=== PATIENT | female | born 1995 | race Two or more races ===

== ENCOUNTER 2019-03-22 18:49 | Emergency (ER) | payer OTHER ==
[2019-03-22 18:56] VITALS: BMI 19.1
--- NOTE | 2019-03-22 19:17 | PDOC ---
History of Present Illness - General Chief Complaint: Vaginal Bleeding Stated Complaint: 5 W PREG/VAG BLEEDING Time Seen by Provider: 03/22/19 19:12 History Source: Patient - History of Present Illness Initial Comments: 03/22/19 19:23 The patient is a 23 year old female at a self reported 5 weeks gestation who presents with acute onset of vaginal spotting today. No visible clots, no abdominal cramping. Evaluated two weeks previous at [facility] office with no concerning findings. Next [facility] appointment scheduled for 04/02/19. The patient denies chest pain, shortness of breath abdominal cramping, nausea/ vomiting, fevers/chills, numbness/tingling. NKDA As per EMR, patient O-negative and Rhogam administered after her 2013 delivery. Past History - Past Medical History Allergies/Adverse Reactions: Allergies Allergy/AdvReac Type Severity Reaction Status Date / Time No Known Allergies Allergy Verified 03/22/19 18:52 Home Medications: Ambulatory Orders Cephalexin [Keflex] 500 mg PO BID #14 capsule 03/22/19 Asthma: No Cancer: No Cardiac Disorders: No COPD: No Diabetes: No HTN: No Seizures: No Thyroid Disease: No - Reproductive History Ectopic : No - Immunization History Immunization Up to Date: Yes - Suicide/Smoking/Psychosocial Hx Smoking Status: No Smoking History: Never smoked Have you smoked in the past 12 months: No Number of Cigarettes Smoked Daily: 0 Hx Alcohol Use: No Drug/Substance Use Hx: No Substance Use Type: None Hx Substance Use Treatment: No *Physical Exam - Vital Signs Last Vital Signs Temp Pulse Resp BP Pulse Ox 98.7 F 111 H 20 114/72 100 03/22/19 18:52 03/22/19 18:52 03/22/19 18:52 03/22/19 18:52 03/22/19 18:52 - Physical Exam General Appearance: Yes: Nourished, Appropriately Dressed HEENT: positive: Normal Voice, Hearing Grossly Normal Neck: positive: Trachea midline, Supple Respiratory/Chest: positive: Lungs Clear, Normal Breath Sounds Cardiovascular: positive: S1, S2. negative: Edema, Murmur Female Pelvic Exam: positive: normal external exam, cervical os closed, vaginal bleeding (pinkish blood in vaginal vault) Musculoskeletal: negative: CVA Tenderness (R), CVA Tenderness (L) ED Treatment Course - LABORATORY CBC & Chemistry Diagram: 03/22/19 19:48 03/22/19 19:48 Medical Decision Making - Medical Decision Making 03/22/19 19:25 23 year old female at a self reported 5 weeks gestation with vaginal spotting. Tachycardic (HR 111), other VS unremarkable. Will evaluate for Threatened vs. SAB with TVUS, beside pelvic exam, CBC to evaluate for anemia, UA for Asx bacteruria. 03/22/19 21:31 Beta HCG 3716 c/w 3-5 week gestation 03/22/19 21:40 Hb stable @ 12 UA pending 03/22/19 22:04 Tachycardia resolved, other VSS TVUS shows no gestational sac or pole. Patient counseled she will require repeat B-HCG within 48 hours and likely repeat TVUS. Blood placed informed of Rhogam order 03/22/19 22:10 03/22/19 22:48 Called lab - label on patient's UA crooked, and machine rejected sample. Will rerun 03/22/19 23:04 UA shows 2+ blood 2+ leukocyte esterase, (+) nitrite, 34 WBC, > 9000 bacteria. Will treat with Keflex for presumed UTI. Patient discharged home with return precautions, strong counseling on importance of follow up evaluation with [facility]- [facility] Security Sales Consultant and 7 day course of Cephaxelin. I discussed the physical exam findings, ancillary test results and final diagnoses with the patient. I answered all of the patient's questions. The patient was satisfied with the care received and felt comfortable with the discharge plan and treatment plan. The patient will return to the Emergency Department with any new, persistent or worsening symptoms. 03/22/19 23:09 *DC/Admit/Observation/Transfer Diagnosis at time of Disposition: Vaginal bleeding affecting early , UTI (urinary tract infection) - Discharge Dispostion Disposition: HOME Condition at time of disposition: Good Decision to Admit order: No - Prescriptions Prescriptions: Cephalexin [Keflex] 500 mg PO BID #14 capsule - Referrals - Patient Instructions Printed Discharge Instructions: DI for Vaginal Bleeding During Additional Instructions: Please make a follow-up appointment for evaluation with your [facility] Consultant in the next 48 hours. If you are unable to be evaluated by your mgmt specialist in the next 48 hours return immediately to the Emergency Department for repeat blood testing and ultrasound. We have sent an antibiotic prescription to your pharmacy for bacteria in your urine.. Please take the entire antibiotic course as directed. Return to the Emergency Department before 48 hours for any new/worsening/ concerning symptoms. - Post Discharge Activity
--- NOTE | 2019-03-22 19:41 | PDOC ---
Documentation entered by Feliciano Campos SCRIBE, acting as scribe for Teresita Marte MD. Teresita Marte MD: This documentation has been prepared by the Andres douglas Xhesika, SCRIBE, under my direction and personally reviewed by me in its entirety. I confirm that the documentation accurately reflects all work, treatment, procedures, and medical decision making performed by me. Attending Attestation - Resident Resident Name: BrittanyAnabella - ED Attending Attestation I have performed the following: I have examined & evaluated the patient, The case was reviewed & discussed with the resident, I agree w/resident's findings & plan, Exceptions are as noted - HPI HPI: 03/22/19 19:39 The patient is a 23 year old female, , 5 weeks , with no significant past medical history of who presents to our ED with onset vaginal bleeding. The patient was seen by her OPERATIONS ARCHITECT 2 weeks ago with no abnormal findings. Patient states her next appointment is on 04/02/19. The patient denies abdominal pain, chest pain, shortness of breath or dizziness. The patient denies fever, chills, nausea, diarrhea or constipation. The patient denies dysuria, frequency, or urgency. Allergy: NKDA Surgical History: None reported Social History: None reported - Physicial Exam PE: 03/22/19 19:24 GENERAL: The patient is in no acute distress. ENT: Ears normal, nares patent, oropharynx clear without exudates. Moist mucous membranes. NECK: Normal range of motion, supple LUNGS: Breath sounds equal, clear to auscultation bilaterally. No wheezes, and no crackles. HEART:Regular rate and rhythm, normal S1 and S2 without murmur, rub or gallop. ABDOMEN: Soft, nontender, normoactive bowel sounds. PELVIC: per resident examination EXTREMITIES: Normal range of motion NEUROLOGICAL: Cranial nerves II through XII grossly intact. Normal speech. No focal neurological deficits. SKIN: Warm, Dry, normal turgor, no rashes or lesions noted. - Medical Decision Making 03/22/19 19:39 23 yo F presenting to the ER with vaginal bleeding (approximately 5 weeks) Ectopic , threatened ab, sub chorionic hemorrhage Will do: Labs Type and Screen TV US Re assess 03/22/19 22:00 Laboratory Tests 03/22/19 03/22/19 19:48 19:48 WBC 5.0 Hgb 12.0 Hct 35.4 Plt Count 207 Sodium 138 Potassium 4.0 Chloride 107 Carbon Dioxide 24 BUN 15 Creatinine 1.0 Random Glucose 92 Beta HCG, Quant 3716.1 FINDINGS: Likely early intrauterine gestational sac with no pole or yolk sac visualized. Approximate age of 4 weeks, 5 days by mean sac diameter of 0.23 cm Correlation with serial beta hCG and follow-up ultrasound is suggested There are 2 small fluid collections in the fundal endometrium 1 anechoic simple fluid collection and 1 containing complex fluid. These are of uncertain etiology or clinical significance Normal right ovary containing a few small follicles 03/22/19 22:00 03/22/19 22:48 Laboratory Tests 03/22/19 19:48 Blood Type O NEGATIVE Rhogam given Awaiting UA
[2019-03-22 19:58] LABS: BASO % 1.1 % (0-2.0); EOS % 1.9 % (0-4.5); HEMATOCRIT 35.4 % (32.4-45.2); LYMPH % 39.5 % (8-40); MCH 31.7 pg (25.7-33.7); MCHC 33.9 g/dl (32.0-36.0); MEAN CELL VOLUME 93.4 fl (80-96); MEAN PLT VOLUME 8.5 fl (7.5-11.1); MONO % 12.1 % (3.8-10.2); NEUT % 45.4 % (42.8-82.8); PLATELET COUNT 207 K/MM3 (134-434); RBC 3.79 M/mm3 (3.60-5.2); RDW 12.4 % (11.6-15.6)
[2019-03-22 20:32] LABS: ALBUMIN 3.8 g/dl (3.4-5.0); BILIRUBIN,TOTAL 0.7 mg/dL (0.2-1); CALCIUM 8.6 mg/dL (8.5-10.1); TOT PROT 7.8 g/dl (6.4-8.2)
[2019-03-22] MEDS ORDERED: RHO(D) IMMUNE GLOBULIN 1,500 UNIT DISP.SYRIN IM ONE (21:45)
[2019-03-22 22:02] VITALS: BP 100/60; PULSE 95; TEMP 98.2
[2019-03-22 22:54] LABS: EPI CELLS 2.2 /HPF (0-5/HPF); PH,URINE 6.5 (5.0-8.0); URINE APPEARANCE CLOUDY; URINE BACTERIA >9000 /hpf (NEGATIVE); URINE BILIRUBIN NEGATIVE (NEGATIVE); URINE CASTS 13 /lpf (0-8); URINE COLOR YELLOW; URINE GLUCOSE (UA) NEGATIVE (NEGATIVE); URINE KETONE NEGATIVE (NEGATIVE); URINE LEUK ESTERASE 2+ (NEGATIVE); URINE NITRITE POSITIVE (NEGATIVE); URINE PROTEIN NEGATIVE (NEGATIVE); URINE RBC 9 /hpf (0-4); URINE UROBILINOGEN 0.2 mg/dL (0.2-1.0); URINE WBC 34 /hpf (0-5)
== END 2019-03-22 23:06 | disposition home or self-care (01) ==
LOC: JER 18:49
PROC: 3E033GC Introduction of Other Therapeutic Substance into Peripheral Vein, Percutaneous Approach (ICD-10-PCS; principal; 2019-03-22)
DX: O26.891 Other specified pregnancy related conditions, first trimester (principal); Z3A.01 Less than 8 weeks gestation of pregnancy; N39.0 Urinary tract infection, site not specified
CPT/HCPCS: 36415; 76817-TC; 80053; 81003; 84702; 85025; 86850; 86900; 86901; 86999; 99282-25; J1561

== ENCOUNTER 2022-01-02 18:36 | Emergency (ER) | payer OTHER ==
[2022-01-02 18:57] VITALS: BP 118/74; PULSE 110; TEMP 98.2; BMI 27.3
[2022-01-02] MEDS ORDERED: KETOROLAC TROMETHAMINE 30 MG/1 ML VIAL IM ONE (20:01)
[2022-01-02] MEDS ORDERED: KETOROLAC TROMETHAMINE 30 MG/1 ML VIAL ONE (20:13)
== END 2022-01-02 20:49 | disposition home or self-care (01) ==
LOC: JER 18:36
PROC: 3E0233Z Introduction of Anti-inflammatory into Muscle, Percutaneous Approach (ICD-10-PCS; principal; 2022-01-02)
DX: R07.1 Chest pain on breathing (principal)
CPT/HCPCS: 96372; 99283-25

== ENCOUNTER 2022-07-01 10:13 | Emergency (ER) | payer OTHER ==
[2022-07-01 10:32] VITALS: BP 102/67; PULSE 100; RESP 18; TEMP 98.3; BMI 22.7
[2022-07-01] MEDS ORDERED: KETOROLAC TROMETHAMINE 60 MG/2 ML VIAL IM ONE (11:09)
[2022-07-01] MEDS ORDERED: KETOROLAC TROMETHAMINE 30 MG/1 ML VIAL ONE (11:11)
== END 2022-07-01 12:07 | disposition home or self-care (01) ==
LOC: JER 10:13 → JERFT 10:13
PROC: 3E0233Z Introduction of Anti-inflammatory into Muscle, Percutaneous Approach (ICD-10-PCS; principal; 2022-07-01)
DX: M25.511 Pain in right shoulder (principal)
CPT/HCPCS: 73030-TC-RT-FY; 93005; 93010; 99284-25

== ENCOUNTER 2023-10-25 09:18 | Emergency (ER) | payer OTHER ==
[2023-10-25 09:25] VITALS: BMI 28.1
[2023-10-25] MEDS ORDERED: METOCLOPRAMIDE HCL INJECTION 10 MG/2 ML VIAL IVPB ONE (09:52)
[2023-10-25] MEDS ORDERED: SODIUM CHLORIDE 0.9% 500 ML INFUS.BAG IV ONE (09:52)
[2023-10-25] MEDS ORDERED: ACETAMINOPHEN 1000 MG/100 ML BAG IVPB ONE (09:53)
[2023-10-25] MEDS ORDERED: ACETAMINOPHEN INJECTION 100 ML IVPB ONE (10:11)
[2023-10-25] MEDS ORDERED: METOCLOPRAMIDE HCL INJECTION 10 MG/2 ML VIAL ONE (10:11)
[2023-10-25 10:22] LABS: BASO % 1.5 % (0-2.0); EOS % 1.8 % (0-4.5); HEMATOCRIT 34.2 % (32.4-45.2); HEMOGLOBIN 11.8 GM/dL (10.7-15.3); LYMPH % 38.5 % (8-40); MCH 31.4 pg (25.7-33.7); MCHC 34.6 g/dl (32.0-36.0); MEAN PLT VOLUME 8.2 fl (7.5-11.1); MONO % 12.6 % (3.8-10.2); NEUT % 45.6 % (42.8-82.8); PLATELET COUNT 229 10^3/uL (134-434); RBC 3.76 M/mm3 (3.60-5.2); RDW 12.2 % (11.6-15.6); WHITE BLOOD COUNT 4.5 K/mm3 (4.0-10.0)
[2023-10-25 10:40] LABS: CHLORIDE 103 mmol/L (98-107); POTASSIUM 4.2 mmol/L (3.5-5.1); SODIUM 136 mmol/L (136-145)
[2023-10-25 10:43] LABS: ALBUMIN 3.4 g/dl (3.4-5.0); ANION GAP 7 mmol/L (4-13); BLOOD UREA NITROGEN 12.9 mg/dL (7-18); CALCIUM 8.7 mg/dL (8.5-10.1); CO2 26 mmol/L (21-32); GLUCOSE,RANDOM 90 mg/dL (74-106)
[2023-10-25 10:46] LABS: CREATININE 0.8 mg/dL (0.55-1.3); SGOT/AST 19 U/L (15-37)
[2023-10-25 10:47] LABS: SGPT/ALT 46 U/L (13-61)
[2023-10-25 10:48] LABS: TOT PROT 7.7 g/dl (6.4-8.2)
[2023-10-25 10:49] LABS: ALK PHOS 64 U/L (45-117)
[2023-10-25] MEDS ORDERED: ACETAMINOPHEN 500 MG TABLET (FP) ONE (10:50)
[2023-10-25 10:51] LABS: EPI CELLS >36 /uL (0-25.1); HYALINE CASTS 1 /uL (0-3.1); PH,URINE 5.5 (5.0-8.0); URINE APPEARANCE TURBID; URINE BACTERIA >9,000 /uL (0-1359); URINE BILIRUBIN NEGATIVE (NEGATIVE); URINE COLOR DK YELLOW; URINE GLUCOSE (UA) NEGATIVE (NEGATIVE); URINE KETONE TRACE (NEGATIVE); URINE LEUK ESTERASE 3+ (NEGATIVE); URINE NITRITE POSITIVE (NEGATIVE); URINE PROTEIN 1+ (NEGATIVE); URINE RBC 112 /uL (0-23.9); URINE WBC 1031 /uL (0-25.8)
[2023-10-25] MEDS ORDERED: CEFTRIAXONE 1,000 MG in DEXTROSE 5%-WATER - 50 ML IVPB ONE (10:55)
[2023-10-25] MEDS ORDERED: CEFTRIAXONE 1 GM/50 ML BAG ONE (11:03)
[2023-10-25 15:59] VITALS: BP 111/62; PULSE 76; RESP 20; TEMP 98.2
== END 2023-10-25 15:25 | disposition home or self-care (01) ==
LOC: JER 09:18
PROC: 3E03329 Introduction of Other Anti-infective into Peripheral Vein, Percutaneous Approach (ICD-10-PCS; principal; 2023-10-25)
PROC: 3E033NZ Introduction of Analgesics, Hypnotics, Sedatives into Peripheral Vein, Percutaneous Approach (ICD-10-PCS; 2023-10-25)
PROC: 3E033GC Introduction of Other Therapeutic Substance into Peripheral Vein, Percutaneous Approach (ICD-10-PCS; 2023-10-25)
DX: O21.9 Vomiting of pregnancy, unspecified (principal); O26.891 Other specified pregnancy related conditions, first trimester; R10.30 Lower abdominal pain, unspecified; R51.9 Headache, unspecified; R11.0 Nausea; Z20.822 Contact with and (suspected) exposure to COVID-19; Z3A.09 9 weeks gestation of pregnancy
CPT/HCPCS: 0241U-QW; 36415; 76830-TC; 80053; 81003; 83735; 84702; 85025; 86850; 86900; 86901; 87086; 87186; 93005; 93010; 99285-25

== ENCOUNTER 2024-01-01 10:09 | Observation (INO) | payer OTHER ==
[2024-01-01 10:14] VITALS: BMI 26.6
[2024-01-01 11:04] LABS: BASO % 0.6 % (0-2.0); EOS % 1.7 % (0-4.5); HEMOGLOBIN 11.2 GM/dL (10.7-15.3); LYMPH % 23.5 % (8-40); MCHC 34.9 g/dl (32.0-36.0); MEAN CELL VOLUME 94.3 fl (80-96); MEAN PLT VOLUME 7.9 fl (7.5-11.1); MONO % 7.8 % (3.8-10.2); NEUT % 66.4 % (42.8-82.8); PLATELET COUNT 230 10^3/uL (134-434); RDW 12.8 % (11.6-15.6); WHITE BLOOD COUNT 6.3 K/mm3 (4.0-10.0)
[2024-01-01 11:10] LABS: EPI CELLS >36 /uL (0-25.1); HYALINE CASTS 20 /uL (0-3.1); PH,URINE 7.5 (5.0-8.0); URINE APPEARANCE TURBID; URINE BACTERIA >9,000 /uL (0-1359); URINE BILIRUBIN NEGATIVE (NEGATIVE); URINE COLOR YELLOW; URINE GLUCOSE (UA) NEGATIVE (NEGATIVE); URINE KETONE NEGATIVE (NEGATIVE); URINE LEUK ESTERASE 2+ (NEGATIVE); URINE NITRITE POSITIVE (NEGATIVE); URINE PROTEIN 4+ (NEGATIVE); URINE UROBILINOGEN 0.2 mg/dL (0.2-1.0); URINE WBC 6725 /uL (0-25.8)
[2024-01-01 11:33] LABS: POTASSIUM 4.6 mmol/L (3.5-5.1)
[2024-01-01 11:35] LABS: CALCIUM 9.1 mg/dL (8.5-10.1)
[2024-01-01 11:36] LABS: BLOOD UREA NITROGEN 9.2 mg/dL (7-18)
[2024-01-01 11:39] LABS: CREATININE 0.6 mg/dL (0.55-1.3)
[2024-01-01 11:40] LABS: BILIRUBIN,TOTAL 0.6 mg/dL (0.2-1); TOT PROT 7.4 g/dl (6.4-8.2)
[2024-01-01] MEDS ORDERED: CEFTRIAXONE 1 GM/50 ML BAG ONE (11:47)
[2024-01-01] MEDS: CEFTRIAXONE 1 GM in DEXTROSE 5%-WATER - 100 ML IVPB ONE (11:56)
[2024-01-01 13:55] LABS: URINE RBC 318.4 /uL (0-23.9)
[2024-01-01 13:57] LABS: YEAST NONE SEEN (NEGATIVE)
[2024-01-01 14:22] VITALS: PULSE 97; RESP 16
[2024-01-01] MEDS: SODIUM CHLORIDE 1,000 ML IV STA (15:32)
[2024-01-01] MEDS: SODIUM CHLORIDE 1,000 ML IV SCH (16:01)
[2024-01-01 18:27] VITALS: BP 103/53; TEMP 98.4
== END 2024-01-01 18:31 | disposition home or self-care (01) ==
LOC: JER 10:09 → INTOOBSV 13:34 → UNDOADMOB 13:34 → JERBED 13:34
PROVIDERS: ADMIT Internal Medicine; ATTEND Internal Medicine
PROC: 3E03329 Introduction of Other Anti-infective into Peripheral Vein, Percutaneous Approach (ICD-10-PCS; principal; 2024-01-01)
PROC: 3E0337Z Introduction of Electrolytic and Water Balance Substance into Peripheral Vein, Percutaneous Approach (ICD-10-PCS; 2024-01-01)
DX: O23.42 Unspecified infection of urinary tract in pregnancy, second trimester (principal); N39.0 Urinary tract infection, site not specified; O12.12 Gestational proteinuria, second trimester; Z3A.18 18 weeks gestation of pregnancy; R10.32 Left lower quadrant pain
CPT/HCPCS: 36415; 76775-TC; 76816-TC; 76856-TC; 80053; 81003; 82436; 82570; 83605; 83930; 84133; 84300; 85025; 86140; 87086; 87186; 96361; 96365; 99285-25; G0378

== ENCOUNTER 2024-05-28 08:00 | Inpatient (IN) | payer OTHER ==
[2024-05-30] MEDS: ELECTROLYTE-148 SOLN 500 ML IV ONE (08:30)
[2024-05-30] MEDS ORDERED: DEXAMETHASONE SOD PHOSPHATE 4 MG/1 ML VIAL ONE (09:00)
[2024-05-30] MEDS ORDERED: ONDANSETRON 4 MG/2 ML VIAL ONE (09:00)
[2024-05-30] MEDS ORDERED: METOCLOPRAMIDE HCL INJECTION 10 MG/2 ML VIAL ONE (09:00)
[2024-05-30] MEDS ORDERED: OXYTOCIN 10 UNITS/ML VIAL ONE (09:00)
[2024-05-30] MEDS ORDERED: KETOROLAC TROMETHAMINE 30 MG/1 ML VIAL ONE (09:00)
[2024-05-30] MEDS ORDERED: ceFAZolin SODIUM 1 GM VIAL ONE (09:00)
[2024-05-30] MEDS ORDERED: ePHEDrine SULFATE 50 MG/1 ML AMPULE ONE (09:02)
[2024-05-30] MEDS ORDERED: morphine SULFATE/PF 1 MG/2 ML (2cc Syringe - QUVA) ONE (09:10)
[2024-05-30] MEDS ORDERED: FENTANYL CITRATE/PF 50 MCG/ML VIAL ONE (09:10)
[2024-05-30 09:25] VITALS: BMI 31.4
[2024-05-30] MEDS: OXYTOCIN 20 UNITS in 0.9% NS 20 UNIT/1,000 ML INFUS.BAG IV SCH (11:20)
[2024-05-30] MEDS ORDERED: OXYTOCIN 20 UNITS in 0.9% NS 20 UNIT/1,000 ML INFUS.BAG IV ONE ×2 (12:03→13:22)
[2024-05-30] MEDS ORDERED: IBUPROFEN 800 MG/8 ML IJ IVPB ONE (13:24)
[2024-05-30] MEDS: IBUPROFEN 800 MG/8 ML IJ IVPB PRN (13:30)
[2024-05-30] MEDS: SIMETHICONE 80 MG TAB.CHEW (FP) PO PRN (20:31)
[2024-05-31] MEDS: oxyCODONE HCL 5 MG TABLET PO PRN (02:42)
[2024-05-31 08:55] LABS: BASO % 0.2 % (0-2.0); EOS % 0.1 % (0-4.5); HEMATOCRIT 21.4 % (32.4-45.2); HEMOGLOBIN 7.1 GM/dL (10.7-15.3); LYMPH % 15.2 % (8-40); MCH 29.7 pg (25.7-33.7); MEAN PLT VOLUME 8.5 fl (7.5-11.1); MONO % 8.3 % (3.8-10.2); NEUT % 76.2 % (42.8-82.8); PLATELET COUNT 189 10^3/uL (134-434); RBC 2.38 M/mm3 (3.60-5.2); RDW 15.4 % (11.6-15.6)
[2024-05-31] MEDS ORDERED: BISACODYL 10 MG SUPP.RECT RC PRN (10:12)
[2024-05-31] MEDS: ACETAMINOPHEN 325 MG TABLET (FP) PO PRN (13:47)
[2024-05-31] MEDS: IBUPROFEN 600 MG TABLET (FP) PO PRN (18:17)
[2024-06-01 10:04] LABS: BASO % 0.4 % (0-2.0); EOS % 0.7 % (0-4.5); HEMATOCRIT 21.5 % (32.4-45.2); HEMOGLOBIN 7.3 GM/dL (10.7-15.3); MCH 30.3 pg (25.7-33.7); MCHC 33.9 g/dl (32.0-36.0); MEAN CELL VOLUME 89.5 fl (80-96); MEAN PLT VOLUME 8.1 fl (7.5-11.1); NEUT % 75.9 % (42.8-82.8); PLATELET COUNT 192 10^3/uL (134-434); RDW 15.7 % (11.6-15.6)
[2024-06-02 06:09] LABS: BASO % 0.3 % (0-2.0); EOS % 3.5 % (0-4.5); HEMATOCRIT 18.7 % (32.4-45.2); LYMPH % 25.1 % (8-40); MCH 30.3 pg (25.7-33.7); MCHC 33.7 g/dl (32.0-36.0); MEAN CELL VOLUME 89.9 fl (80-96); MEAN PLT VOLUME 7.4 fl (7.5-11.1); MONO % 7.4 % (3.8-10.2); NEUT % 63.7 % (42.8-82.8); PLATELET COUNT 197 10^3/uL (134-434); RBC 2.08 M/mm3 (3.60-5.2); RDW 15.6 % (11.6-15.6); WHITE BLOOD COUNT 9.9 K/mm3 (4.0-10.0)
[2024-06-02 06:40] LABS: HEMOGLOBIN 6.3 GM/dL (10.7-15.3)
[2024-06-02 10:20] VITALS: RESP 18
[2024-06-02 17:57] LABS: BASO % 0.4 % (0-2.0); HEMATOCRIT 23.6 % (32.4-45.2); HEMOGLOBIN 7.8 GM/dL (10.7-15.3); LYMPH % 16.4 % (8-40); MCH 29.2 pg (25.7-33.7); MCHC 33.1 g/dl (32.0-36.0); MEAN CELL VOLUME 88.4 fl (80-96); MEAN PLT VOLUME 7.7 fl (7.5-11.1); MONO % 6.3 % (3.8-10.2); NEUT % 72.9 % (42.8-82.8); PLATELET COUNT 252 10^3/uL (134-434); RBC 2.67 M/mm3 (3.60-5.2); RDW 15.8 % (11.6-15.6); WHITE BLOOD COUNT 12.2 K/mm3 (4.0-10.0)
[2024-06-02 17:58] VITALS: BP 111/74; PULSE 101; TEMP 98.3
== END 2024-06-02 18:55 | disposition home or self-care (01) | DRG 540 ==
LOC: JLDR 05-30 08:05 → J3W 05-30 13:30
PROVIDERS: ADMIT Student in an Organized Health Care Education/Training Program; ATTEND Student in an Organized Health Care Education/Training Program
PROC: 10D00Z1 Extraction of Products of Conception, Low, Open Approach (ICD-10-PCS; principal; 2024-05-30)
PROC: 30233N1 Transfusion of Nonautologous Red Blood Cells into Peripheral Vein, Percutaneous Approach (ICD-10-PCS; 2024-06-02)
DX: O36.63X0 Maternal care for excessive fetal growth, third trimester, not applicable or unspecified (principal); O90.81 Anemia of the puerperium; D64.9 Anemia, unspecified; Z3A.39 39 weeks gestation of pregnancy; Z37.0 Single live birth
CPT/HCPCS: 36415; 36430; 59025; 85025; 86780; 86850; 86870; 86880; 86900; 86901; 86902; 86922; 88307-TC; 94010; P9038; P9058

== ENCOUNTER 2025-04-09 05:36 | Day surgery (SDC) | payer OTHER ==
[2025-04-08 09:57] VITALS: BMI 28.8
[2025-04-09] MEDS ORDERED: PROPOFOL 20 ML ONE (07:43)
[2025-04-09] MEDS ORDERED: ROCURONIUM BROMIDE 50 MG/5 ML SYRINGE ONE (07:43)
[2025-04-09] MEDS ORDERED: MIDAZOLAM HCL 2 MG/2 ML SINGLE DOSE VIAL ONE (07:43)
[2025-04-09] MEDS ORDERED: BUPIVACAINE HCL/PF 0.5% (5MG/ML) 10 ML VIAL ONE (07:49)
[2025-04-09] MEDS ORDERED: LIDOCAINE HCL/PF 2% SDV 5ML VIAL ONE (08:12)
[2025-04-09] MEDS ORDERED: ONDANSETRON 4 MG/2 ML VIAL ONE ×2 (08:15→08:52)
[2025-04-09] MEDS ORDERED: DEXAMETHASONE SOD PHOSPHATE 4 MG/1 ML VIAL ONE (08:15)
[2025-04-09] MEDS ORDERED: ceFAZolin SODIUM 1 GM VIAL ONE (08:15)
[2025-04-09] MEDS: BUPIVACAINE HCL/PF 0.5% (5MG/ML) 10 ML VIAL IJ ONE ×3 (08:30)
[2025-04-09] MEDS ORDERED: ACETAMINOPHEN INJECTION 100 ML ONE (08:31)
[2025-04-09] MEDS ORDERED: NEOSTIGMINE METHYLSULFATE 0.5 MG/1 ML - 10 ML MDV ONE (08:51)
[2025-04-09] MEDS ORDERED: KETOROLAC TROMETHAMINE 30 MG/1 ML VIAL ONE (08:54)
[2025-04-09] MEDS ORDERED: ONDANSETRON 4 MG/2 ML VIAL IVPUSH PRN (09:42)
[2025-04-09] MEDS ORDERED: oxyCODONE HCL 5 MG TABLET PO PRN (09:42)
[2025-04-09] MEDS ORDERED: LACTATED RINGERS SOLUTION 1,000 ML IV SCH (09:45)
[2025-04-09 11:38] VITALS: TEMP 96.9
[2025-04-09 11:40] VITALS: BP 93/69; PULSE 58; RESP 18
== END 2025-04-09 11:40 | disposition home or self-care (01) ==
LOC: JASU-SURG 05:36
PROVIDERS: ATTEND Student in an Organized Health Care Education/Training Program
PROC: 8E0W4CZ Robotic Assisted Procedure of Trunk Region, Percutaneous Endoscopic Approach (ICD-10-PCS; 2025-04-09)
PROC: 0UT74ZZ Resection of Bilateral Fallopian Tubes, Percutaneous Endoscopic Approach (ICD-10-PCS; principal; 2025-04-09 08:00)
DX: Z30.2 Encounter for sterilization (principal)
CPT/HCPCS: 81025; 88305-TC; 94760; J0131